=== PATIENT | male | born 1995 | race Caucasian/White ===

== ENCOUNTER 2022-10-01 11:06 | Emergency (ER) | payer OTHER, SELFPAY ==
--- NOTE | 2022-10-01 11:15 | ED_ITS ---
HPI - Skin/Abscess/Foreign Bdy General Chief complaint: General Medical <GENESIS Galloway Last Filed: 10/01/22 11:22> Stated complaint: bug bite/finger swollen <GENESIS aGlloway Last Filed: 10/01/22 11:22> Time Seen by Provider: 10/01/22 11:28 <GENESIS Galloway Last Filed: 10/01/22 11:22> Source: patient <GENESIS Desai Last Filed: 10/01/22 12:26> Mode of arrival: ambulatory <GENESIS Desai Last Filed: 10/01/22 12:26> Limitations: no limitations <GENESIS Desai Last Filed: 10/01/22 12:26> History of Present Illness HPI narrative: This is a 27-year-old male presenting to the emergency department with a tight ring around his left ring finger, patient reports that yesterday or the day before he got a bug bite and since then his finger has been swelling now he is unable to take the ring off. Denies numbness, tingling, fevers, chills, chest pain, shortness of breath, nausea, vomiting. <GENESIS Desai Last Filed: 10/01/22 12:26> Related Data Home medications: Previous Rx's Medication Instructions Recorded diphenhydramine HCl 25 mg capsule 25 mg PO TID PRN allergic reaction 10/01/22 (Benadryl) #20 caps epinephrine 0.3 mg/0.3 mL 0.3 mg (0.3 mL) IM Q4H PRN 10/01/22 injection, auto-injector (EpiPen anaphylaxis #2 ea 2-Bharathi) prednisone 20 mg tablet 40 mg PO DAILY 5 days #10 tabs 10/01/22 <GENESIS Galloway Last Filed: 10/01/22 11:22> Allergies/Adverse reactions: Allergies Allergy/AdvReac Type Severity Reaction Status Date / Time No Known Allergies Allergy Verified 10/01/22 11:16 <GENESIS Galloway Last Filed: 10/01/22 11:22> Review of Systems Review of Systems: Constitutional : No Weight loss, No Fever, No Chills, No Fatigue, No Malaise ENT/Mouth : No sore throat, No Rhinorrhea Eyes: No Eye Pain, No Swelling, No Redness Cardiovascular : No Chest Pain, No SOB, No Dyspnea on Exertion, No Orthopnea, No Edema, No Palpitations Respiratory : No Cough, No Sputum, No Wheezing Gastrointestinal : No Nausea, No Vomiting, No Diarrhea, No Constipation, No abdominal Pain, No Hematochezia, No Melena Genitourinary : No Dysuria, No Urinary Frequency, No Hematuria, Musculoskeletal : No joint pain, No Myalgias, + Joint Swelling Skin : No Skin Lesions, No rash Neuro : No Weakness, No Numbness, No Dizziness, No Headache Psych : No Anxiety/Panic, No Depression All other systems reviewed and are negative <GENESIS Desai - Last Filed: 10/01/22 12:26> Yes all other systems are reviewed and are negative <GENESIS Desai - Last Filed: 10/01/22 12:26> [facility] Past Medical History Attestation statement: The following information was validated with the patient. <GENESIS Desai - Last Filed: 10/01/22 12:26> Source: old records reviewed and nursing notes reviewed <GENESIS Desai - Last Filed: 10/01/22 12:26> Physical Exam Vital Signs: Vital Signs: Last Vital Signs Temp 98 F 10/01/22 11:17 Pulse 79 10/01/22 11:17 Resp 10/01/22 11:17 BP 135/59 L 10/01/22 11:17 Pulse Ox 98 10/01/22 11:17 BMI result Body Mass Index 44.3 <GENESIS Galloway - Last Filed: 10/01/22 11:22> Vital Signs: Last Vital Signs Temp 98 F 10/01/22 11:17 Pulse 79 10/01/22 11:17 Resp 10/01/22 11:17 BP 135/59 L 10/01/22 11:17 Pulse Ox 98 10/01/22 11:17 BMI result Body Mass Index 44.3 vss <GENESIS Desai - Last Filed: 10/01/22 12:26> Appearance: Alert.? Oriented X3.? No acute distress.? Head: Normocephalic, atraumatic, no step-offs or deformities Eyes: Pupils equal, round and reactive to light.? CVS: Normal heart rate and rhythm.? Pulses normal.? Respiratory: No respiratory distress.? Breath sounds normal.? Abdomen: Soft and nontender.? Skin: Skin warm and dry.? Normal skin color.? Normal skin turgor.? Extremities: No lower extremity edema.? No calf ttp. 5/5 strength to bilateral upper and lower extremities + small insect bite noted to lateral left ring finger. Digit very swollen. 2+ radial pulses equal and b/l. cap refil < 2 seconds to all UE digits Back: No midline tenderness, no C-spine tenderness, full range of motion, no CVA tenderness bilaterally Neuro: Oriented X 3.? No motor deficit.? No sensory deficit. CN 2-12 intact <GENESIS Desai - Last Filed: 10/01/22 12:26> Course Course Course Narrative: RME: 27 yo M w/no sig PMHx c/o insect bite to L ring finger w/assoc finger swelling and pruritus s/p camping. Admits noted lesion yesterday morning, has been unable to get ring off + small insect bite noted to lateral left ring finger. Digit very swollen. suspect localized allergic rxn. Ring intact & unable to be removed w/lube in triage Patient will need ring cut off Full HPI, ROS and PE to be performed by primary ED provider. <GENESIS Galloway - Last Filed: 10/01/22 11:22> Reevaluation(s) Reevaluation #1: A tourniquet was used as well as the string trich without success. <EGNESIS Desai Last Filed: 10/01/22 12:26> Time: 12:25 <GENESIS Desai Last Filed: 10/01/22 12:26> Reevaluation #2: Ring rescue Dolphin apparatus was used at the bedside with success, prior to doing this patient's verbal consent for cutting the ring was obtained patient gives verbal consent to cut ring, after procedure patient was given all pieces of the ring back. Patient tolerated procedure well. No complications. This is the 1st time patient has an allergic reaction like this, will give him an EpiPen in case he experiences any signs or symptoms of anaphylaxis. Will have him follow-up with PCP. Given ice to ice finger. Educated patient on diagnosis and treatment plan, answered all question, patient verbalizes understanding. At this time patient will be discharged home, advised to return with new or worsening symptoms. Educated on worrisome signs and symptoms and when to return . At this time I feel comfortable discharge home. <GENESIS Desai - Last Filed: 10/01/22 12:26> Time: 12: <GENESIS Desai Last Filed: 10/01/22 12:26> Medical Decision Making Medical Decision Making MDM Narrative: 27-year-old male presents for swollen left 4th digit and a ring that is stuck he reports he got a bug bite and ever since then his finger has been swelling. Physical exam significant for No lower extremity edema.? No calf ttp. 5/5 strength to bilateral upper and lower extremities + small insect bite noted to lateral left ring finger. Digit very swollen. 2+ radial pulses equal and b/l. cap refil < 2 seconds to all UE digits This is likely a localized allergic reaction secondary to bug bite causing edema of the finger resulting in ring to get stuck. Unlikely fracture, dislocation no signs of threatened limb or your neurovascular compromise. Plan ring removal techniques <GENESIS Desai Last Filed: 10/01/22 12: 26> Differential Diagnosis Differential Diagnoses: The differential diagnosis associated with the presentation includes <GENESIS Desai Last Filed: 10/01/22 12:26> This is likely a localized allergic reaction secondary to bug bite causing edema of the finger resulting in ring to get stuck. Unlikely fracture, dislocation no signs of threatened limb or your neurovascular compromise. <GENESIS Desai Last Filed: 10/01/22 12:26> Admission/Observation Consideration of admission/observation: Escalation of care including admission/observation considered <GENESIS Desai Last Filed: 10/01/22 12:26> Not indicated <GENESIS Desai Last Filed: 10/01/22 12:26> Core Measures AMI core measures followed: Yes <GENESIS Desai Last Filed: 10/01/22 12:26> Measure exclusions: not indicated <GENESIS Desai Last Filed: 10/01/22 12:26> Critical Care Time Critical Care Time Critical Care Time: No <GENESIS Desai Last Filed: 10/01/22 12:26> Discharge Plan Discharge Clinical Impression: Allergic reaction, Tight ring on finger <GENESIS Galloway Last Filed: 10/01/22 11:22> Patient Disposition: Home, Self-Care <GENESIS Galloway Last Filed: 10/01/22 11:22> Instructions: Epinephrine (By injection), General Allergic Reaction (ED), Allergy Testing (ED) <GENESIS Galloway Last Filed: 10/01/22 11:22> Additional Instructions: Take your medications as prescribed. If you were prescribed antibiotics today, it is important that you take your medication to their entirety, do not skip any doses, do not finish them early. Follow-up with your primary care provider this week. Return to the emergency department with new or worsening symptoms. Such as fevers, chills, chest pain, shortness of breath, nausea, vomiting, dizziness, headache, vision changes, lethargy In case of emergency call 911 An EpiPen has been sent to your pharmacy, please use this as instructed if you experience shortness of breath, difficulty breathing or any other symptoms of anaphylaxis. Please follow-up with PCP and allergy doctor. Your ring was removed after obtaining her verbal consent and you were given your ring back. <GENESIS Galloway Last Filed: 10/01/22 11:22> Prescriptions: New prednisone 20 mg tablet 40 mg PO DAILY 5 Days Qty: 10 0RF diphenhydramine HCl [Benadryl] 25 mg capsule 25 mg PO TID PRN (Reason: allergic reaction) Qty: 20 0RF epinephrine [EpiPen 2-Bharathi] 0.3 mg/0.3 mL auto-injector 0.3 mg IM Q4H PRN (Reason: anaphylaxis) Qty: 2 0RF <GENESIS Galloway Last Filed: 10/01/22 11:22> Referrals: Physician,Unknown J [Primary Care Provider] - 2 days <GENESIS Galloway - Last Filed: 10/01/22 11:22> Stand Alone Forms: Work/School Release <GENESIS Galloway - Last Filed: 10/01/22 11:22>
[2022-10-01 11:17] VITALS: BP 135/59; PULSE 79; RESP 19; TEMP 36.6; O2SAT 98; BMI 44.3
--- NOTE | 2022-10-01 12:37 | PC.NURSE ---
verbal conscent obtained by provider at bedside for removal of ring on left ring finger, Ring Rescue Dolphin was used for procedure, pt skin was cleaned with ns, and patted dry, sensation and motor intact pulses strong.
== END 2022-10-01 12:38 | disposition home or self-care (01) ==
LOC: HO.ED 12:30
PROVIDERS: Emergency Provider Emergency Medicine
DX: L50.0 Allergic urticaria (principal); Z79.899 Other long term (current) drug therapy
CPT/HCPCS: 99282; 99283